=== PATIENT | male | born 1940 | race Native Hawaiian/Other Pacific Islander ===

== ENCOUNTER 2020-05-22 07:11 | Outpatient (CLI) | payer OTHER ==
[2020-05-22 08:15] LABS: PLATELET COUNT 151 K/uL (142-355)
== END 2020-05-22 21:34 | disposition home or self-care (01) ==
LOC: LABW 07:11
PROVIDERS: ATTEND Internal Medicine
DX: N18.32 Chronic kidney disease, stage 3b (principal); R53.83 Other fatigue; E79.0 Hyperuricemia without signs of inflammatory arthritis and tophaceous disease
CPT/HCPCS: 36415; 80053; 81000; 82043; 82306; 82330; 82570; 82607; 82728; 82746; 83540; 83550; 83735; 83970; 84100; 84155; 84439; 84443; 84550; 85027; 85652; 86038

== ENCOUNTER 2020-05-27 07:56 | Outpatient (CLI) | payer OTHER | END 2020-05-27 22:03 | disposition home or self-care (01) | LOC: US 07:56 | PROVIDERS: ATTEND Internal Medicine | DX: N18.32 Chronic kidney disease, stage 3b (principal) ==

== ENCOUNTER 2020-10-26 09:05 | Outpatient (CLI) | payer OTHER ==
[2020-10-26 09:43] LABS: PLATELET COUNT 179 K/uL (142-355)
[2020-10-26 09:46] LABS: POTASSIUM 4.3 mmol/L (3.6-5.2)
== END 2020-10-26 19:08 | disposition home or self-care (01) ==
LOC: LABW 09:05
PROVIDERS: ATTEND Internal Medicine
DX: N18.32 Chronic kidney disease, stage 3b (principal); E79.0 Hyperuricemia without signs of inflammatory arthritis and tophaceous disease
CPT/HCPCS: 36415; 80053; 81000; 82043; 82306; 82330; 82570; 83735; 83970; 84100; 84155; 84550; 85027